=== PATIENT | female | born 1930 | race Caucasian/White ===

== ENCOUNTER → 2018-05-17 | Outpatient (REF) | payer MEDICARE, BC, OTHER ==
[2018-05-17 18:57] LABS: FOLATE > 24.0 NG/ML; VITAMIN B12 LEVEL 559 PG/ML
== END ==
LOC: M LAB REF 17:28
DX: R41.3 Other amnesia (principal)
CPT/HCPCS: 82746

== ENCOUNTER 2019-04-30 02:33 | Inpatient (IN) | payer MEDICARE, BC, OTHER ==
[2019-04-30] VITALS (7 sets, daily range): BP systolic 156–184; BP diastolic 66–86; O2SAT 95
[~2019-04-30] VITALS: Ht 162.6 cm; Wt 55.0 kg
[~2019-04-30 02:33] MED LIST: ADV100INH INH; ALPR0.25 PO; AMLO10TA5 PO; ASPI81TA85 PO; ATEN50TA2 PO; ATOR1TAB19 PO; CEFD300CAP PO; CENTTAB PO; CYAN100049 PO; ELIQ2.5T PO; HYDR12.55 PO; HYDR25TAB PO; PROAAER10 INH; QUIN1TAB3 PO; SPIR12.9 INH; TIOT18INH INH; VITA100067 PO
[2019-04-30] MEDS: IPRATROPIUM 0.5MG/ALBUTEROL 2.5MG INH SOL UD 3ML (DUONEB)(J7620) NEB SCH ×5 (03:09→11:08)
[2019-04-30] MEDS ORDERED: dexameTHASONE 20 MG/5 ML VIAL (J1100) IV ONE (03:15)
[2019-04-30 03:16] LABS: BASO % 0.4 % (0.0-1.0); EOS # 0.1 10^3/uL (0.0-0.50); EOS % 1.2 % (0.0-3.0); HEMATOCRIT 34.1 % (36.0-47.0); HEMOGLOBIN 10.2 g/dl (12.0-15.5); LYMPH # 1.3 10^3/uL (1.5-4.5); LYMPH % 16.1 % (24.0-44.0); MEAN CORPUSCULAR HEMOGLOBIN 33.7 pg (27.0-33.0); MEAN CORPUSCULAR HGB CONC 29.9 g/dl (32.0-36.5); MEAN CORPUSCULAR VOLUME 112.5 fl (80.0-96.0); MONO # 0.7 10^3/uL (0.0-0.8); MONO % 7.8 % (0.0-5.0); NEUTROPHILS # 6.1 10^3/uL (1.8-7.7); NEUTROPHILS % 73.2 % (36.0-66.0); PLATELET COUNT, AUTOMATED 213 10^3/uL (150-450); RED BLOOD COUNT 3.03 10^6/uL (4.00-5.40); WHITE BLOOD COUNT 8.3 10^3/uL (4.0-10.0)
[2019-04-30 03:29] LABS: BLOOD UREA NITROGEN 27 MG/DL (7-18); CALCIUM LEVEL 8.7 MG/DL (8.8-10.2); CARBON DIOXIDE LEVEL 36 MEQ/L (21-32); CHLORIDE LEVEL 103 MEQ/L (98-107); CK-MB VALUE MASS 2.4 NG/ML (<3.6); CPK CREATINE PHOSPHOKINASE 67 U/L (26-192); CREATININE FOR GFR 0.83 MG/DL (0.55-1.30); GLOMERULAR FILTRATION RATE > 60.0 (>32); GLUCOSE, FASTING 300 MG/DL (70-100); MB/CK RELATIVE INDEX 3.58 (< OR =4); NT-PRO BNP 2135 PG/ML (<450); POTASSIUM SERUM 4.2 MEQ/L (3.5-5.1); SODIUM LEVEL 141 MEQ/L (136-145); TROPONIN I < 0.02 NG/ML (< 0.10)
[2019-04-30] MEDS ORDERED: FUROSEMIDE 100 MG/10 ML VIAL (J1940) IV ONE (03:30)
[2019-04-30] MEDS ORDERED: ASPI81TA85 PO (03:49)
[2019-04-30] MEDS ORDERED: ELIQ2.5T PO (03:49)
[2019-04-30] MEDS ORDERED: AMLO10TA5 PO (03:49)
[2019-04-30] MEDS ORDERED: CENT1TAB PO (03:49)
[2019-04-30] MEDS ORDERED: DONE10TA90 PO (03:52)
[2019-04-30] MEDS ORDERED: D5W/0.45% SODIUM CHLORIDE 1,000 ML IV SCH (05:40)
[2019-04-30] MEDS ORDERED: FUROSEMIDE 20 MG/2 ML VIAL (J1940) IV ONE (06:00)
--- NOTE | 2019-04-30 07:40 | REP ---
Portable chest, 03:18 a.m., single AP view with the patient sitting: Comparison is 07/08/2017. The previous left lung infiltrate has resolved. There is effacement right costophrenic angle suggestive of a right pleural effusion. There is chronic interstitial coarsening compatible with chronic lung disease. Cardiac size is slightly enlarged, unchanged. The emily, mediastinum, skeletal structures are unremarkable. Impression: Right pleural effusion. Chronic interstitial coarsening. Chronic mild cardiomegaly. Electronically Signed by Bar Chakraborty MD 04/30/2019 07:33 A
[2019-04-30] MEDS ORDERED: methylPREDNISolone INJ 125 MG/2 ML VIAL (J2930) IV SCH (09:00)
[2019-04-30] MEDS ORDERED: PANTOPRAZOLE 40MG INJ (PROTONIX) (C9113) IV SCH (09:00)
[2019-04-30] MEDS ORDERED: ENOXAPARIN 40 MG/0.4 ML SYRINGE (J1650) SC SCH (09:00)
[2019-04-30] MEDS ORDERED: ONDANSETRON 4MG/2ML VIAL (J2405) IV PRN (13:30)
[2019-04-30] MEDS ORDERED: LORazepam 2 MG/ML VIAL (J2060) IV PRN (13:30)
[2019-04-30] MEDS ORDERED: MORPHINE 4 MG/ML 1ML VIAL/SYRINGE (J2270) IV PRN (13:30)
--- NOTE | 2019-04-30 13:31 | IPNPDOC ---
Text Note Date of Service The patient was seen on 04/30/19. NOTE This 88-year-old female was admitted under the sound art instructor service this morning for shortness of breath and was found to be in hypercapnic respiratory failure. BiPAP therapy was ordered on admission, however the patient's living will had stated that she did not want any mechanical ventilation. This was discussed with the patient's daughter Ofe Moon and the on-call Ward Supervisor/Bag Cutter, Dr. Kimble and the decision was made to make the patient Comfort Measures Only given her deteriorating clinical condition and aforementioned wishes. Please refer to the admission H&P from the Ward Supervisor Service for complete details of presentation on arrival. I did stop to see the patient and discuss her care with her Daughter/HCP Ofe Moon. I confirmed her wishes for Comfort Measures Only, and signed the MOLST form reflecting these wishes. The patient's bedside nurses were present and have also witnessed the legal document. VS,Fishbone, I+O VS, Fishbone, I+O Laboratory Tests 04/30/19 02:48 Red Blood Count 3.03 L, Mean Corpuscular Volume 112.5 H, Mean Corpuscular Hemoglobin 33.7 H, Mean Corpuscular Hemoglobin Concent 29.9 L, Red Cell Distribution Width 14.3, Neutrophils (%) (Auto) 73.2 H, Lymphocytes (%) (Auto) 1 6.1 L, Monocytes (%) (Auto) 7.8 H, Eosinophils (%) (Auto) 1.2, Basophils (%) (Auto) 0.4, Neutrophils # (Auto) 6.1, Lymphocytes # (Auto) 1.3 L, Monocytes # (Auto) 0.7, Eosinophils # (Auto) 0.1, Basophils # (Auto) 0.0, Calcium Level 8.7 L, Total Creatine Kinase 67 Vital Signs Date Time Temp Pulse Resp B/P (MAP) Pulse Ox O2 Delivery O2 Flow Rate FiO2 04/30/19 12:00 98.5 74 18 156/78 (104) 94 3.0 04/30/19 09:00 35 04/30/19 04:55 BIPAP/CPAP SHAY MARTIN MD Apr 30, 2019 13:31
--- NOTE | 2019-05-01 07:09 | ECGEPIP ---
[facility] - ED Test Date: 2019-04-30 Pat Name: YOLANDA CAIN Department: Room: Gender: Female Maintenance Clerk: tenzin : [id number] Requested By: ERIC DAI Order Number: [id number] Reading MD: Jessy Lockwood Measurements Intervals [place] Rate: 73 P: 85 FL: 159 QRS: 27 QRSD: 145 T: 27 QT: 422 QTc: 466 Interpretive Statements SINUS RHYTHM INDETERMINATE AXIS RIGHT BUNDLE BRANCH BLOCK SEPTAL MYOCARDIAL INFARCTION, OF INDETERMINATE AGE 1107/14/17 ATRIAL FIBRILLATION Electronically Signed on 05-01-2019 7:08:54 EDT by Jessy Lockwood
[2019-05-01] MEDS ORDERED: LORazepam 1 MG TAB PO PRN (08:00)
[2019-05-01] MEDS ORDERED: MORPHINE 10MG/0.5ML ORAL CONCENTRATE SOLUTION U/D SL PRN (08:00)
--- NOTE | 2019-05-01 09:59 | IPNPDOC ---
Subjective Date Seen The patient was seen on 05/01/19. Subjective Chief Complaint/HPI Patient seen and examined at the bedside. She is noted to be sitting up in a chair, awake, alert, and conversational. She denies any acute complaints at this time. She states that she does not recollect the events that took place yesterday. No acute overnight events noted. Objective Physical Examination General Exam: Positive: Alert, Cooperative, No Acute Distress ENT Exam: Positive: Atraumatic, Mucous membr. moist/pink Neck Exam: Negative: JVD Chest Exam: Positive: Other (diminished breath sounds in the right lower lobe on auscultation.) Heart Exam: Positive: Rate Normal, Normal S1, Normal S2 Abdomen Exam: Positive: Soft; Negative: Tenderness Extremity Exam: Negative: Tenderness, Swelling Psych Exam: Positive: Other (patient oriented to her date, but not place, situation, or time.) Assessment /Plan Plan/VTE VTE Prophylaxis Ordered?: No Plan Admitted for right-sided pleural effusion, and hypercapnic respiratory failure History of atrial fibrillation History of COPD on home oxygen Hypertension Dyslipidemia The patient was admitted for respiratory distress and was found to have hypercapnic respiratory failure with a right-sided pleural effusion. The patient was made comfort measures only yesterday based on her wishes expressed in her living well and confirmation with her daughter Ofe Moon. The patient spent most of the day yesterday sleeping. This morning, the patient is feeling much better and is noted to be sitting up in a chair. She does not recollect the even ts that took place yesterday. She is pleasantly confused and has dementia, and this appears to be her baseline according to her son. The patient's son is at the bedside and is hoping to take his mother home tomorrow if her clinical condition remains stable. He thinks that the patient may have taken her oxygen off at home for a prolonged period of time prior to her presentation to the ER, and this may have led to her presentation. At this time, they want to continue comfort measures only. We'll continue to monitor the patient. VS, I&O, 24H, Fishbone Vital Signs/I&O Vital Signs Date Time Temp Pulse Resp B/P (MAP) Pulse Ox O2 Delivery O2 Flow Rate FiO2 04/30/19 19:30 3.0 04/30/19 12:00 98.5 74 18 156/78 (104) 94 8/24/19 09:00 35 04/30/19 04:55 BIPAP/CPAP I&O- Last 24 Hours up to 6 AM 05/01/19 06:00 Intake Total 195 ml Output Total 1025 ml Balance -830 ml SHAY MARTIN MD May 01, 2019 09:59
[2019-05-02] MEDS ORDERED: LORA0.5T5 PO (11:13)
[2019-05-02] MEDS ORDERED: MORP20SO3 PO (11:13)
[2019-05-02] MEDS ORDERED: HYOS125TA PO (11:13)
--- NOTE | 2019-05-02 12:28 | DS.PDOC ---
Discharge Summary General Date of Admission Apr 30, 2019 at 05:40 Date of Discharge 05/02/19. Specialist/Consultants Involve Dr. Kimble of Pulmonary Discharge Summary PROCEDURES PERFORMED DURING STAY: None. ADMITTING/DISCHARGE DIAGNOSES: Admitted for right-sided pleural effusion, and hypercapnic respiratory failure History of atrial fibrillation History of COPD on home oxygen Hypertension Dyslipidemia COMPLICATIONS/CHIEF COMPLAINT: Acute On Chronic Resp Failure W Hypercapnia. HISTORY OF PRESENT ILLNESS: . 88 Y/O F with PMH of atrial fibrillation, COPD on home oxygen, hypertension, dyslipidemia, and dementia was initially admitted under the hand reamer service for respiratory distress and was found to have hypercapnic respiratory failure with a right-sided pleural effusion. The patient was made comfort measures only based on her wishes expressed in her living well and confirmation with her daughter Ofe Moon. The patient surprisingly improved despite being TERMITE TECHNICIAN, and being provided supportive treatment only.She is noted to be sitting up in a chair and without any acute distress. She does not recollect the events that took place on admission. She is pleasantly confused and has dementia, and this appears to be her baseline according to her son, and two daughters who are at the bedside.. The patient's son stated he thinks that the patient may have taken her oxygen off at home for a prolonged period of time prior to her presentation to the ER, and this may have led to her presentation. At this time, the patient appears to be back to her baseline and her family would like to take her home under comfort measures only status, with follow-up with hospice as an outpatient. I extensively discussed the risks, benefits, and alternative options with the patient's family, and they would like to proceed with the aforementioned plan. We will discharge the patient home today under the care of her family, and instructions to follow-up with hospice which has been arranged with our PFS/case management staff. The beneficiary has a mobility limitation that significantly impairs her ability to participate in one or more mobility related activities of daily living such as toileting, feeding, dressing, grooming, and bathing in customary locations in her home. The beneficiary's mobility limitation cannot be sufficiently resolved by the use of an appropriately fitted lindquist or walker. Use of a manual wheelchair will significantly improve the beneficiary's ability to participate in mobility related activities of daily living and the beneficiary will use it on a regular basis in the home. She will be assisted by her family for all of these measures DISCHARGE MEDICATIONS: Please see below. ALLERGIES: Please see below. PHYSICAL EXAMINATION ON DISCHARGE: VITAL SIGNS: Please see below. General Exam: Positive: Alert, Cooperative, No Acute Distress ENT Exam: Positive: Atraumatic, Mucous membr. moist/pink Neck Exam: Negative: JVD Chest Exam: Positive: Other (diminished breath sounds in the right lower lobe on auscultation.) Heart Exam: Positive: Rate Normal, Normal S1, Normal S2 Abdomen Exam: Positive: Soft; Negative: Tenderness Extremity Exam: Negative: Tenderness, Swelling Psych Exam: Positive: Other (patient oriented to her date, but not place, situation, or time.) LABORATORY DATA: Please see below. IMAGING: Portable chest, 03:18 a.m., single AP view with the patient sitting: Comparison is 07/08/2017. The previous left lung infiltrate has resolved. There is effacement right costophrenic angle suggestive of a right pleural effusion. There is chronic interstitial coarsening compatible with chronic lung disease. Cardiac size is slightly enlarged, unchanged. The emily, mediastinum, skeletal structures are unremarkable. Impression: Right pleural effusion. Chronic interstitial coarsening. Chronic mild cardiomegaly. PROGNOSIS: Poor long-term prognosis ACTIVITY: As tolerated. DIET: As tolerated DISCHARGE PLAN: DISPOSITION: . Home with hospice DISCHARGE INSTRUCTIONS: Follow-up with hospice as an outpatient DISCHARGE CONDITION: Stable. TIME SPENT ON DISCHARGE: Greater than 30 minutes. The beneficiary has a mobility limitation that significantly impairs her ability to participate in one or more mobility related activities of daily living such as toileting, feeding, dressing, grooming, and bathing in customary locations in her home. The beneficiary's mobility limitation cannot be sufficiently resolved by the use of an appropriately fitted lindquist or walker. Use of a manual wheelchair will significantly improve the beneficiary's ability to participate in mobility related activities of daily living and the beneficiary will use it on a regular basis in the home. She will be assisted by her family for all of these measures. The beneficiary requires positioning of the body in ways not feasible with an ordinary bed in order to alleviate pain. The beneficiary also requires frequent changes in body position and/or has an immediate need for a change in body position Vital Signs/I&Os Vital Signs Date Time Temp Pulse Resp B/P (MAP) Pulse Ox O2 Delivery O2 Flow Rate FiO2 05/02/19 10:00 3.0 04/30/19 12:00 98.5 74 18 156/78 (104) 94 04/30/19 09:00 35 04/30/19 04:55 BIPAP/CPAP I&O- Last 24 Hours up to 6 AM 05/02/19 05:59 Intake Total 670 ml Output Total 0 ml Balance 670 ml Discharge Medications Scheduled PRN Hyoscyamine Sulfate (Hyoscyamine Sulfate) 0.125 Mg Tab.subl, 0.125 MG PO Q4HP PRN for TERMINAL SECRETIONS Use sublingually if unable to swallow Lorazepam (Lorazepam) 0.5 Mg Tablet, 0.5 MG PO Q4HP PRN for ANXIETY/AGITATION Use sublingually if unable to swallow Morphine Sulfate (Morphine Sulfate) 100 Mg/5 Ml Solution, 0.25-1 ML PO Q2H PRN for PAIN OR DYSPNEA Use sublingually if unable to swallow Allergies Coded Allergies: No Known Allergies (Unverified , 07/08/17) SHAY MARTIN MD May 02, 2019 12:28
--- NOTE | 2019-05-02 16:24 | HPE ---
DATE OF ADMISSION: 04/30/2019 PULMONARY CRITICAL CARE NOTE: I was called to the emergency department to evaluate this 88-year-old female with acute on chronic respiratory failure. The patient's daughter, with whom she resides, indicates that the patient is generally confused, sleeping in the day and calling out at night. She complained of increasing dyspnea. A home oximeter read low, and the daughter applied oxygen. The patient became anxious and asked to be brought to the hospital. In the emergency department, she was in respiratory distress and arterial blood gases showed respiratory acidosis, indicating ventilatory failure. A noninvasive ventilator was applied, and I was called. The patient is now awake, though alertness is difficult to assess. She is pulling at the noninvasive positive pressure ventilation mask. On review of the electronic health record, she has a history of obstructive lung disease secondary to 60 pack-years of smoking history and she is an active smoker. She had pneumonia in 2017 requiring hospitalization. She had a secondary cardiac arrhythmia at that time, and there is a history of dementia. At bedside, her temperature is 97, pulse rate is 91, respirations are 30, blood pressure 145/64. She is awake and confused. HEENT: Her oral mucosa is pink and dry. Neck is supple. There is no meningismus. Jugular veins are not distended. The carotid upstroke is sluggish. Heart sounds are regular without appreciable murmur. Breath sounds are diminished globally. Expiratory phase is prolonged, and there is hyperresonance to percussion. The chest is symmetric, increased in its AP diameter. Abdomen is soft, sunken, with intact bowel sounds. Extremities: The left lower extremity shows chronic edema. Peripheral pulses are diminished. Nails show no clubbing. DIAGNOSTIC STUDIES: Chest x-ray shows prominence in the interstitium and clearing of an infiltrate noted in 2017. Her white cell count is 8.3, hemoglobin 10.2, hematocrit 34.1, platelet count 213,000. Electrolytes are sodium 141, potassium 4.2, chloride 103, CO2 of 36, BUN is 27, creatinine 0.83, glucose is 300, BNP 2135. Arterial blood gases showed a pH of 7.19, pCO2 of 105, pO2 of 180. IMPRESSION: The primary problem requiring critical attention is acute on chronic respiratory failure. The patient's daughter presents a document indicating no mechanical ventilation. I clarified to her that noninvasive positive pressure ventilation delivered via mask is a ventilator and would require intensive care unit (ICU) care. After discussion with her siblings, the daughter has elected to proceed with ICU care short of resuscitation. We will facilitate transfer now to the intensive care unit and continue with noninvasive ventilatory support. In light of the BNP, we will administer gentle diuresis. The patient's condition is critical. Prognosis is poor. 1 hour and 47 minutes was spent in the provision of bedside critical care and coordination. Edited: saroj 05/03/2019 1026
--- NOTE | 2019-05-02 16:33 | CCN ---
DATE: 04/30/2019 TIME: 10:00 a.m. ADDENDUM CRITICAL CARE NOTE: The patient was reevaluated in the intensive care unit. She has diuresed well with Lasix, is more awake and interactive though she remains confused. She is fighting with the noninvasive positive pressure mask. Saturations are much improved. Her oxygen requirement is significantly down. I will take her off the noninvasive ventilation at this point and go to a nasal cannula oxygen titrating to a saturation of 88 +/- 2. Her condition remains critical. Prognosis remains guarded. 37 minutes was spent in the provision of bedside critical care and coordination.
== END 2019-05-02 17:45 | disposition hospice, home (50) | DRG 189 ==
LOC: M ED 02:33 → M ED INP 05:40 → M ICU 07:03 → M MS5PR 16:01
PROVIDERS: ADMIT Internal Medicine Pulmonary Disease; ATTEND Internal Medicine
DX: J96.22 Acute and chronic respiratory failure with hypercapnia (principal); J90 Pleural effusion, not elsewhere classified; I48.91 Unspecified atrial fibrillation; J44.9 Chronic obstructive pulmonary disease, unspecified; F17.200 Nicotine dependence, unspecified, uncomplicated; F03.90 Unspecified dementia, unspecified severity, without behavioral disturbance, psychotic disturbance, mood disturbance, and anxiety; I10 Essential (primary) hypertension; E78.5 Hyperlipidemia, unspecified; Z51.5 Encounter for palliative care; Z66 Do not resuscitate; Z99.81 Dependence on supplemental oxygen; Z79.01 Long term (current) use of anticoagulants; Z79.82 Long term (current) use of aspirin; Z79.899 Other long term (current) drug therapy